=== PATIENT | male | born 1945 | race Caucasian/White ===

== ENCOUNTER → 2019-08-28 07:48 | Outpatient (CLI) | payer MEDICARE, OTHER ==
--- NOTE | 2019-09-01 15:54 | EC ---
PATIENT:MOHSEN ORTIZ DATE OF SERVICE: 08/28/19 SEX: M MEDICAL RECORD: [id number] DATE OF : 41 [facility] AGE OF PATIENT: 73 ADMISSION DATE: 08/28/19 REFERRING PHYSICIAN: INTERPRETING PHYSICIAN: HOLDEN RIBERA MD ECHOCARDIOGRAM REPORT ECHO CHARGES 4 ECHO COMPLETE Date: 08/28/19 CLINICAL DIAGNOSIS: ANGINA/ABNORMAL EKG/ BRADYCARDIA H/O HTN/CAD ECHOCARDIOGRAPHIC MEASUREMENTS (adult normal given) AC root (d.<3.7cm) 3.5 cm LV Septum d (<1.2 cm> 1.1 cm Valve Excursion 2.3 cm LV Septum (systole) 1.8 cm Left Atria (s.<4.0cm> 4.8 cm LVPW d(<1.2cm) 1.3 cm RV (d.<2.3cm) 2.3 cm LVPW (sytole) 2.0 cm LV diastole(<5.6CM) 6.3 cm MV E-F(>70mm/sec) cm LV systole 3.5 cm LVOT Diameter 1.9 cm MV exc.(>10mm) cm Est.ejection fraction (50-75%) % DOPPLER: LVIT cm/sec A 49.0 cm/sec E 54.0 cm/sec LA cm/sec RVSP 31.0 mmHg LVOT 102 cm/sec AOP1/2T m/s Asc. Ao 174 cm/sec RVOT 62.0 cm/sec RA cm/sec PA 90.0 cm/sec AV Gradient Peak 12.2 mmHg AV Mean 6.2 mmHg AV Area 1.5 cm MV Gradient Peak 2.9 mmHg MV Mean 0.58 mmHg MV Area cm COMMENTS: OP - HC [employer]: 1 GALEN BRIAN Hunter Skin Diver: 3 Dr. Becker TAPE# PACS Pericardial Effusion N DATE OF SERVICE: Adequate 2D, color flow imaging, spectral Doppler, and M-Mode No LVH. LV internal dimensions are normal. Wall motion is normal. EF is greater than or equal to 55%. Aortic valve is tricuspid. No evidence of stenosis by Doppler interrogation. Left atrium is dilated at 4.8 cm. Mitral valve shows no prolapse. Trace MR. Right-sided chambers are grossly normal. Trace TR. ECHOCARDIOGRAM REPORT [id number] MOHSEN ORTIZ TRANSINT:[id number] Voice Confirmation ID: [id number] DOCUMENT ID: [id number] HOLDEN RIBERA MD at 1554 CC: [id number] DICTATION DATE: 09/01/19 1318 CONTOUR STITCHER: 09/01/19 1346 DEP CLI 08/28/19 [place] [id number] [place] [id number]
== END | disposition home or self-care (01) ==
LOC: D.HCCECHO 07:48
PROVIDERS: ATTEND Internal Medicine Interventional Cardiology
DX: I08.8 Other rheumatic multiple valve diseases (principal)

== ENCOUNTER → 2020-08-25 07:59 | Outpatient (CLI) | payer MEDICARE, OTHER ==
--- NOTE | 2020-08-29 09:31 | EC ---
PATIENT:MOHSEN ORTIZ DATE OF SERVICE: 08/25/20 SEX: M MEDICAL RECORD: [id number] DATE OF : 41 [facility] AGE OF PATIENT: 74 ADMISSION DATE: 08/25/20 REFERRING PHYSICIAN: INTERPRETING PHYSICIAN: HOLDEN RIBERA MD ECHOCARDIOGRAM REPORT ECHO CHARGES 4 ECHO COMPLETE Date: 08/25/20 CLINICAL DIAGNOSIS: CAD/AORTIC INSUFF ECHOCARDIOGRAPHIC MEASUREMENTS (adult normal given) AC root (d.<3.7cm) 3.4 cm LV Septum d (<1.2 cm> 1.8 cm Valve Excursion 1.6 cm LV Septum (systole) 2.1 cm Left Atria (s.<4.0cm> 4.2 cm LVPW d(<1.2cm) 1.7 cm RV (d.<2.3cm) 4.0 cm LVPW (sytole) 2.0 cm LV diastole(<5.6CM) 5.2 cm MV E-F(>70mm/sec) cm LV systole 2.4 cm LVOT Diameter 2.0 cm MV exc.(>10mm) 1.1 cm Est.ejection fraction (50-75%) % DOPPLER: LVIT cm/sec A 65.0 cm/sec E 55.0 cm/sec LA cm/sec RVSP 34 mmHg LVOT 89 cm/sec AOP1/2T 839 m/s Asc. Ao 136 cm/sec RVOT 86 cm/sec RA cm/sec PA 128 cm/sec AV Gradient Peak 7.35 mmHg AV Mean 3.99 mmHg AV Area 2.5 cm MV Gradient Peak 4.13 mmHg MV Mean 1.07 mmHg MV Area cm COMMENTS: Shared Services Representative: 2 NASIM GARCIA Proof Reader: 3 Dr. Becker TAPE# PACS Pericardial Effusion N DATE OF SERVICE: Adequate 2D, color-flow imaging, spectral Doppler, and M-Mode LVH is present. LV internal dimension is normal. Wall motion is normal. EF is greater than or equal to 55%. Aortic valve is sclerotic. No evidence of stenosis by Doppler interrogation. [id number] AI by color-flow imaging. Left atrium is dilated at 4.2 cm. Mitral valve shows no prolapse. Trace MR. Right-sided chambers are grossly normal. Mild TR. ECHOCARDIOGRAM REPORT [id number] MOHSEN ORTIZ TRANSINT:[id number] Voice Confirmation ID: [id number] DOCUMENT ID: [id number] HOLDEN RIBERA MD at 0931 CC: [id number] DICTATION DATE: 08/26/20 1501 [employer] OPERATOR: 08/27/20 0019 DEP CLI 08/25/20 [place] [id number] [place] [address]
== END | disposition home or self-care (01) ==
LOC: D.HCCECHO 07:59
PROVIDERS: ATTEND Internal Medicine Interventional Cardiology
DX: I25.10 Atherosclerotic heart disease of native coronary artery without angina pectoris (principal)